=== PATIENT | female | born 1970 | race Caucasian/White ===

== ENCOUNTER 2019-11-19 11:44 | Emergency (ER) | payer OTHER ==
[~2019-11-19] VITALS: Ht 167.6 cm; Wt 112.0 kg
[2019-11-19 11:48] VITALS: BP 139/94
[2019-11-19] MEDS ORDERED: ondansetron 4mg rapidly disintigrating tab PO ONE (12:05)
[2019-11-19] MEDS ORDERED: HYDROcodone/acetaminophen 10/325mg tab PO ONE (12:05)
[2019-11-19] MEDS ORDERED: LIDOcaine 1% 30ml preserv. free vial IJ STA (12:41)
== END 2019-11-19 13:40 | disposition home or self-care (01) ==
LOC: ER 11:45
DX: S63.287A Dislocation of proximal interphalangeal joint of left little finger, initial encounter (principal); S80.812A Abrasion, left lower leg, initial encounter; Z88.1 Allergy status to other antibiotic agents; W18.39XA Other fall on same level, initial encounter; Y93.89 Activity, other specified; Y92.89 Other specified places as the place of occurrence of the external cause; Y99.8 Other external cause status
CPT/HCPCS: 26770; 73130; 73140; 99284